=== PATIENT | male | born 2000 | race American Indian/Alaskan Native ===

== ENCOUNTER 2021-09-14 23:59 | Emergency (ER) | payer BC ==
[2021-09-15 00:23] VITALS: BP 119/72
[2021-09-15] MEDS ORDERED: oxyCODONE /ACETAMINOPHEN 5-325MG TAB PO ONE (00:38)
[2021-09-15] MEDS ORDERED: ONDANSETRON 4 MG ODT TAB PO ONE (00:38)
[2021-09-15] MEDS ORDERED: IBUPROFEN 600 MG TAB PO ONE (00:38)
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
== END 2021-09-15 02:50 | disposition home or self-care (01) ==
LOC: ED 23:59
DX: S83.91XA Sprain of unspecified site of right knee, initial encounter (principal); S29.012A Strain of muscle and tendon of back wall of thorax, initial encounter; M62.830 Muscle spasm of back; M62.838 Other muscle spasm; V89.2XXA Person injured in unspecified motor-vehicle accident, traffic, initial encounter; Y93.89 Activity, other specified; Y92.410 Unspecified street and highway as the place of occurrence of the external cause; Y99.8 Other external cause status
CPT/HCPCS: 72040; 72070; 72100; 99283; Q0162